=== PATIENT | male | born 1990 | race Caucasian/White ===

== ENCOUNTER 2021-01-18 08:48 | Emergency (ER) | payer OTHER, SELFPAY ==
--- NOTE | ~2021-01-18 | XR_ITS ---
EXAMINATION: XR CHEST CLINICAL INFORMATION: Cough. COMPARISON: None TECHNIQUE: Frontal view of the chest was obtained. FINDINGS: The lungs are clear. The cardiomediastinal silhouette is normal in size. There is no pleural effusion or pneumothorax. No acute osseous abnormality. XR/XR chest 1V IMPRESSION: No acute cardiopulmonary findings.
[2021-01-18 09:03] VITALS: BP 125/68; PULSE 80; RESP 18; TEMP 36.8; O2SAT 98; BMI 41.3
[2021-01-18 09:38] LABS: COVID-19 Test Negative (Negative); IDNOW Serial# 9DD0AD1C
[2021-01-18 09:41] LABS: Strep A Nucleic Acid Negative (Negative)
--- NOTE | 2021-01-18 10:19 | ED.URI ---
HPI - URI/Sore Throat General Chief Complaint: Upper Respiratory Symptoms Stated Complaint: headaches body aches Time Seen by Provider: 01/18/21 09:09 History of Present Illness HPI Narrative: Patient complains of cough runny nose and sore throat and body aches for 2 days, no shortness of breath no nausea or vomiting no chest pain Related Data Allergies Allergy/AdvReac Type Severity Reaction Status Date / Time No Known Allergies Allergy Verified 01/18/21 09:07 Review of Systems Review of Systems: Positive for cough body aches runny nose sore throat fatigue Negatives are no fever no chills no dizziness no weakness no fainting no feeling faint no neck pain no stiff neck no chest pain no shortness of breath no palpitations no abdominal pain no nausea vomiting or diarrhea no dysuria no rash Yes all other systems are reviewed and are negative [facility] Past Medical History Source: nursing notes reviewed Social History Social History Advance Directives: No Advance Directives Information Provided: No Physical Exam Vital Signs: Vital Signs: Last Vital Signs Temp 98.2 F 01/18/21 09:03 Pulse 80 01/18/21 09:03 Resp 18 01/18/21 09:03 BP 125/68 01/18/21 09:03 Pulse Ox 98 01/18/21 09:03 Body Mass Index 41.3 General appearance is no acute distress The ears are clear with no redness of tympanic membrane The eyes no redness or discharge The pharynx no redness swelling or exudate, mucous membranes are moist, voice is normal Neck is supple The chest is clear to auscultation bilateral Heart no murmur Abdomen soft nontender Extremities no edema no calf tenderness no swelling Skin no rash Course Course Course Narrative: COVID testing was negative, strep throat test was negative, chest x-ray was negative Symptoms were concerning for COVID so patient was advised as long as he is symptomatic he should be aware that 1-rapid test does not rule out COVID and he is given a note for several days off work and recommended to get a repeat test before returning He is otherwise well-appearing with normal vital signs and is discharged home MDM - URI/Sore Throat Lab Data Labs: Lab Results 01/18/21 01/18/21 Range/Units 09:15 09:22 COVID-19 (ISAMAR) Negative (Negative) COVID-19 Clin Com See Note S. pyogenes GrpA MCKINLEY Negative (Negative) Discharge Plan Discharge Clinical Impression: Acute viral syndrome Patient Disposition: Home, Self-Care Additional Instructions: Your COVID test, strep test and chest x-ray were normal But because you have symptoms that could be COVID we recommend no work for 5 days and get a repeat test before going back to confirm it is negative The COVID test is often negative initially and 1 one test does not rule it out if a person is coughing a lot and symptomatic Return to the ER any time for difficulty breathing, any worse condition or any concerns Stand Alone Forms: Work/School Release
== END 2021-01-18 10:41 | disposition home or self-care (01) ==
PROVIDERS: Physician Assistant Medical; Emergency Provider Internal Medicine
DX: B34.9 Viral infection, unspecified (principal); Z20.822 Contact with and (suspected) exposure to COVID-19; J02.9 Acute pharyngitis, unspecified
CPT/HCPCS: 36415; 71045; 87635; 87651; 99283

== ENCOUNTER 2021-01-22 19:57 | Emergency (ER) | payer OTHER, SELFPAY | END 2021-01-22 21:44 | disposition left against medical advice (07) | PROVIDERS: Emergency Provider Emergency Medicine | DX: R53.1 Weakness (principal) ==

== ENCOUNTER 2021-01-24 19:57 | Emergency (ER) | payer OTHER, SELFPAY ==
[2021-01-24 20:00] VITALS: BP 180/120; PULSE 110; RESP 18; TEMP 36.8; O2SAT 97; BMI 40.1
[2021-01-24 20:22] LABS: COVID-19 Test Negative (Negative)
== END 2021-01-24 22:16 | disposition left against medical advice (07) ==
PROVIDERS: Emergency Provider Emergency Medicine
DX: R50.9 Fever, unspecified (principal); M79.10 Myalgia, unspecified site; Z20.822 Contact with and (suspected) exposure to COVID-19
CPT/HCPCS: 36415; 87635; 99282

== ENCOUNTER 2021-06-28 16:22 | Emergency (ER) | payer SELFPAY ==
--- NOTE | 2021-06-28 | ECG_ITS ---
Test Reason : CHEST PAIN Blood Pressure : / mmHG Vent. Rate : 104 BPM Atrial Rate : 104 BPM P-R Int : 152 ms QRS Dur : 086 ms QT Int : 298 ms P-R-T Axes : 053 050 -10 degrees QTc Int : 391 ms Sinus tachycardia Abnormal QRS-T angle, consider primary T wave abnormality Abnormal ECG No previous ECGs available Referred By: Generic ED Physician Electronically Signed By:AIDEE VILLASEÑOR MD
--- NOTE | ~2021-06-28 | XR_ITS ---
EXAMINATION: XR CHEST CLINICAL INFORMATION: Cough COMPARISON: 01/18/2021 TECHNIQUE: Frontal view of the chest was obtained. FINDINGS: No significant abnormality is noted involving the heart, lungs, mediastinum, bony thorax or soft tissues. XR/XR chest 1V IMPRESSION: Unremarkable examination.
[2021-06-28 16:37] VITALS: BP 171/93; PULSE 103; RESP 18; TEMP 37; O2SAT 97; BMI 44.6
[2021-06-28 17:06] LABS: MANUAL DIFF FLAG NO
[2021-06-28 17:21] LABS: Basophils Absolute Auto 0.1 X10*3/uL (0.0-0.2); Basophils Percent Auto 0.7 % (0-2); Eosinophils Absolute Auto 0.2 X10*3/uL (0.0-0.4); Eosinophils Percent Auto 1.5 % (0-4); Hemoglobin 15.1 g/dl (14.0-18.0); Imm Gran Abs Auto 0.06 X10*3/uL (0.00-0.03); Imm Gran Pct Auto 0.6 % (0.0-0.4); Lymphocytes Absolute Auto 2.5 X10*3/uL (1.2-4.9); Lymphocytes Percent Auto 23.6 % (20-40); Mean Corpuscular HGB Conc 33.6 g/dl (31.0-36.0); Mean Corpuscular Volume 86.5 fL (80.0-98.0); Mean Platelet Volume 10.6 fL (9.4-12.4); Monocytes Absolute Auto 0.7 X10*3/uL (0.1-1.2); Monocytes Percent Auto 6.9 % (2-11); Neutrophils Absolute Auto 7.1 x10*3/uL (2.0-8.3); Neutrophils Percent Auto 66.7 % (45-73); Platelet Count 285 X10*3/uL (160-400); Red Cell Distribution Width 11.9 % (11.0-16.0); White Blood Count 10.7 X10*3/uL (4.8-10.8)
[2021-06-28 17:22] LABS: Anion Gap 11 (12-20); Blood Urea Nitrogen 13 mg/dL (9-16); Calcium 10.4 mg/dL (8.4-10.2); Carbon Dioxide 30 mmol/L (22-29); Chloride 103 mmol/L (96-108); Creatinine Clr Calc Pharmacy 158.1; Estimated Glomerular Filt Rate > 60; Glucose Random 103 mg/dL (60-115); Sodium 140 mmol/L (135-145)
[2021-06-28 17:30] LABS: Troponin-I High Sensitivity < 3.5 ng/L (<3.5-35.0)
--- NOTE | 2021-06-28 17:49 | ED.GENADULT ---
HPI - General Adult General Chief complaint: General Medical Stated complaint: COVID+ trouble breathing, chest pain 14+ days Time Seen by Provider: 06/28/21 17:25 Source: patient Mode of arrival: ambulatory Limitations: no limitations History of Present Illness HPI narrative: 31-year-old male with pmh of anxiety not vaccinated for COVID presents to ED for COVID. Patient states he has been positive for COVID since June 14 but had symptoms days prior to diagnosis. Patient states having total of 17 days of COVID symptoms. Patient states for the past 14 days has had continuous cough, chest congestion, coughing up phleghm, body aches, fatigue, and chest pain only when he coughs. Patient states he has monitor his O2 saturation at home has been above 97%. Patient denies coughing up blood, leg swelling, calf pain,or shortness of breath on extertion. Related Data Allergies Allergy/AdvReac Type Severity Reaction Status Date / Time No Known Allergies Allergy Verified 06/28/21 16:37 Review of Systems Review of Systems: Coughing, chest pain when he coughs only, chest congestion, body aches, fatigue Yes all other systems are reviewed and are negative [facility] Past Medical History Medical History (Updated 06/28/21 @ 18:58 by MICHAEL Inman) No known health problems Social History Social History Advance Directives: No Advance Directives Information Provided: Yes Physical Exam Vital Signs: Vital Signs: Last Vital Signs Temp 98.6 F 06/28/21 16:37 Pulse 103 H 06/28/21 16:37 Resp 18 06/28/21 16:37 BP 171/93 H 06/28/21 16:37 Pulse Ox 97 06/28/21 16:37 BMI result Body Mass Index 44.6 Const: General: cooperative, healthy appearing, comfortable, no acute distress, well developed, alert, awake and Physically active Orientation/consciousness: patient oriented x3 HENMT: Head: Yes normal to inspection, Yes No palpable skull fracture present, Yes normocephalic, Yes atraumatic and No abrasion Eyes: General: appearance normal, both eyes and all related structures Neck: Neck: Yes normal visual inspection, Yes full ROM, Yes no lymphadenopathy, Yes no meningeal signs, Yes trachea midline, Yes supple, No anterior neck swelling and No tender Chest: Chest palpation & inspection: normal inspection of the chest and normal palpation of entire chest wall Resp: Effort & Inspection: normal respiratory effort and able to speak in complete sentences Auscultation: clear to auscultation bilaterally Cardio: Jugular venous distension: no JVD Heart sounds: S1 normal heart sound present and S2 normal heart sound present GI: Inspection: Yes normal to inspection and No abdominal wall ecchymosis Palpation (GI): Soft to palpation, not firm, nontender, no guarding and not rigid : General: No CVA tenderness and Yes no CVA tenderness Back/Spine/Pelvis: Back: no CVA tenderness, No CVA tenderness and No back tenderness Skin: General skin exam: no rashes or lesions noted and elasticity normal Neuro: General: patient oriented x3, gait normal, no meningeal signs and CN's II-XI intact bilaterally Cranial nerves: Yes CN's II-XII intact bilaterally Extrem: General: Yes normal to inspection and Yes full ROM Psych: Appearance: grossly normal, well kempt and not disheveled Course Course Course Narrative: Rapid medical screening done by nurse. Labs, EKG, and troponin ordered. Chest x-ray ordered. Vital signs stable. Reevaluation(s) Reevaluation #1: Chest x-ray normal. EKG shows sinus tach. Troponin negative. O2 saturation on room air at rest 97%. On ambulation O2 saturation 96-97%. Patient denies any chest pain or shortness of breath on exertion. Patient will be discharged. Patient presently safe for discharge. patient having symptoms for 17days due to covid. patient educated on posiblity of devoloping long haul chronic covid symptoms. patient is not vaccinated. Not suspecting PE. Patient is not hypoxic and denies pleuritic chest pain. Patient educated on symptoms of PE and respiratory distress and informed to return to the ED if he has them. Patient informed of his elevated blood pressure and is aware that its elevated and admits to 100 pounds weight gain. patient states he will follow up with his PCP in regards to his Blood pressure Time: 18:55 Medical Decision Making MDM Narrative Medical decision making narrative: Covid Lab Data Result diagrams: 06/28/21 17:01 06/28/21 17:01 Labs: Lab Results 06/28/21 06/28/21 06/28/21 Range/Units 17:01 17:01 17:01 WBC 10.7 (4.8-10.8) X10*3/uL RBC 5.20 (4.60-5.80) X10*6/uL Hgb 15.1 (14.0-18.0) g/dl Hct 45.0 (42.0-52.0) % MCV 86.5 (80.0-98.0) fL MCH 29.0 (27.0-33.0) pg MCHC 33.6 (31.0-36.0) g/dl RDW 11.9 (11.0-16.0) % Plt Count 285 (160-400) X10*3/uL MPV 10.6 (9.4-12.4) fL Immature Gran % (Auto) 0.6 H (0.0-0.4) % Neut % (Auto) 66.7 (45-73) % Lymph % (Auto) 23.6 (20-40) % [place] % (Auto) 6.9 (2-11) % Eos % (Auto) 1.5 (0-4) % Baso % (Auto) 0.7 (0-2) % Lymph # (Auto) 2.5 (1.2-4.9) X10*3/uL [place] # (Auto) 0.7 (0.1-1.2) X10*3/uL Eos # (Auto) 0.2 (0.0-0.4) X10*3/uL Baso # (Auto) 0.1 (0.0-0.2) X10*3/uL Abs Immat Gran (auto) 0.06 H (0.00-0.03) X10*3/uL Absolute Neuts (auto) 7.1 (2.0-8.3) x10*3/uL Absolute Nucleated RBC 0.000 (0.0-0.012) X10*3/uL Nucleated RBC % (auto) 0.0 (0.0-0.2) /100WBC Sodium 140 (135-145) mmol/L Potassium 4.0 (3.3-5.1) mmol/L Chloride 103 (96-108) mmol/L Carbon Dioxide 30 H (22-29) mmol/L Anion Gap 11 L (12-20) BUN 13 (9-16) mg/dL Creatinine 0.96 (0.5-1.4) mg/dL Estim Creat Clear Calc 158.1 Estimated GFR > 60 Random Glucose 103 (60-115) mg/dL Calcium 10.4 H (8.4-10.2) mg/dL Troponin I High Sens < 3.5 (<3.5-35.0) ng/L ECG Data Interpretation: EKG sinus tach Ventricular rate of 104, KS interval 152, QRS 86, and QTC 391. NEgative Stemi Discharge Plan Discharge Clinical Impression: COVID-19, COVID-19 anamaria butler manifesting chronic cough Patient Disposition: Home, Self-Care Instructions: Chronic Cough (ED), COVID-19 (Coronavirus Disease 2019) (ED) Additional Instructions: Her symptoms are due to COVID-19. Her chest x-ray, the test for heart, EKG, and rest of labs came back normal. Please follow-up with your primary care provider. Return to the ED for any coughing up blood, worsening chest pain, shortness of breath, leg swelling, calf pain, weakness, dizziness, intractable fever, or any other concerning symptoms. Stand Alone Forms: Work/School Release Interventions: ED Discharge Assessment Last Done: 06/28/21 19:02 Discharge Date/Time: 06/28/21 19:04 Print Language: Andorran
--- NOTE | 2021-06-28 18:44 | PC.NURSE ---
Patient did a walking oxygen level trial . . He walked around room and maintained oxygen levels of 96% -97% at room air . Patient reports zero difficulty breathing while walking , tolerated well .
== END 2021-06-28 19:04 | disposition home or self-care (01) ==
PROVIDERS: Emergency Provider Emergency Medicine
DX: R05.3 Chronic cough (principal); U09.9 Post COVID-19 condition, unspecified; U07.1 COVID-19
CPT/HCPCS: 36415; 71045; 80048; 84484; 85025; 93005; 99283; 99284

== ENCOUNTER 2021-09-22 15:54 | Emergency (ER) | payer SELFPAY ==
--- NOTE | ~2021-09-22 | XR_ITS ---
EXAMINATION: XR LUMBOSACRAL SPINE CLINICAL INFORMATION: Atraumatic lower back pain COMPARISON: None TECHNIQUE: Three views of the lumbosacral spine. FINDINGS: Mild lumbar disc height narrowing L4-L5. Vertebrae have normal height and alignment. No fracture or bone destruction. Facet joints are normal. No spondylolysis or spondylolisthesis. Sacroiliac joints are normal. XR/XR lumbar spine 2-3V IMPRESSION: Mild lumbar disc height narrowing L4-L5.
[2021-09-22 16:54] VITALS: BP 172/112; PULSE 112; RESP 20; TEMP 36.8; O2SAT 95; BMI 44.9
--- NOTE | 2021-09-22 17:35 | ED_ITS ---
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 He reports that it is worse when he is trying to walk or bend over forward to even put his shoes or socks on. He reports that he knows he has gained loss of weight since he started kymberly and since COVID happen. He denies any fevers, chills, dizziness, headaches, neck pain/stiffness, trouble swallowing or breathing, chest pain or shortness of breath, dyspnea on exertion, orthopnea, palpitations, jaw pain, nausea/vomiting/diarrhea constipation, black or bloody stools, dysuria, hematuria, abnormal penile discharge, rashes, history of IV drug use, urinary or bowel incontinence or retention or any other symptoms complaints or concerns at this time. MD elicited complaint: back pain Onset (ago): day(s) (3) Timing: constant and progressively worsening Severity: moderate Similar Symptoms Previously: No Quality: aching Location: lumbar spine Radiation: left leg below the knee Exacerbating factors: movement, walking, lifting and other (And bending over) Relieving factors: none Context: unknown Associated symptoms: denies other symptoms Treatments prior to arrival: NSAIDS Work related injury: No Related Data Previous Rx's Medication Instructions Recorded cyclobenzaprine 10 mg tablet 10 mg PO Q8H PRN #14 tab 09/22/21 lidocaine 5 % topical patch 1 patch TOPICAL DAILY #15 ea 09/22/21 (Lidoderm) naproxen 500 mg tablet 500 mg PO BID PRN #14 tab 09/22/21 Allergies Allergy/AdvReac Type Severity Reaction Status Date / Time No Known Allergies Allergy Verified 09/22/21 17:02 Review of Systems Review of Systems: Constitutional : No trauma, No Weight loss, No Fever, No Chills, ENT/Mouth : No Hearing loss, No Ear Pain, No Nasal Congestion, No Sinus Pain, No Hoarseness, No sore throat, No Rhinorrhea, No Swallowing Difficulty Cardiovascular : No Chest Pain, No SOB Respiratory : No Cough, No Dyspnea Gastrointestinal : No Nausea, No Vomiting, No Diarrhea, No abdominal Pain, No Hematochezia, No Melena Genitourinary : No Dysuria, No Urinary Frequency, No Hematuria, No Urinary or Bowel Incontinence/retention Musculoskeletal : + Back pain, No neck pain, No joint stiffness, No joint swelling Skin : No Skin Lesions, No rash or signs of infection Neuro : No Weakness, No radiation, No Numbness, No Paresthesias, No headache, no loss of bowel or bladder incontinence, no saddle anesthesia, Focal weakness, + radiation to left lower leg Denies history of IV drug usage. Yes all other systems are reviewed and are negative [facility] Past Medical History Attestation statement: The following information was validated with the patient. Medical History No known health problems Social History Social History Advance Directives: No Advance Directives Information Provided: No Physical Exam Vital Signs: Vital Signs: Last Vital Signs Temp 98.2 F 09/22/21 16:54 Pulse 112 H 09/22/21 16:54 Resp 20 09/22/21 16:54 BP 172/112 H 09/22/21 16:54 Pulse Ox 95 09/22/21 16:54 BMI result Body Mass Index 44.9 vital signs have been reviewed as normal and appeared to be correct. Blood pressure normal. Heart rate normal. Respiration rate normal. Temperature normal. Oxygen saturation normal. Appearance: Alert. Oriented X3. No acute distress. Head: Normal external exam. Normocephalic. Atraumatic. No [place] signs noted. No raccoon eyes noted Eyes: PERRLA. EOMI. Conjunctiva and sclera normal. Eyelids normal. ENT: EAC normal. TM's Normal. Pharynx normal. Uvula midline. Moist mucous membranes. No trismus noted. No drooling noted. No muffled voice noted. Neck: Normal inspection. Neck supple. FROM. No adenopathy. Thyroid Normal. No meningeal signs. No neck mass noted. CVS: Normal heart rate and rhythm. Heart sound normal. No murmurs noted. Pulses normal throughout. Respiratory: No respiratory distress. Painless inspiration. Breath sounds normal. No wheezes/rales/rhonchi noted. Chest nontender. No accessory muscle usage noted or decreased air movement noted. Abdomen: Soft and nontender. Bowel sounds normal in all 4 quadrants. No distention noted. No organomegaly noted. No visible injury noted. Back: No CVA tenderness. Full range of motion noted. No obvious deformities, or edema. Mild para-spinal muscular tenderness from lumbar region to coccyx. Full ROM in back and lower extremities. 5/5 strength hip extension/flexion, abduction, adduction. Mild Lumbar pain with hip flexion against resistance. Straight leg raise test negative on right; Straight leg raise test negative on left; Reflexes normal ankle and knee bilaterally; EHL motor strength normal bilaterally. No rashes/lesion/induration/fluctuance or signs infection noted. Skin: Skin warm and dry. Normal skin color. Normal skin turgor. No rashes/lesions/lacerations noted. Extremities: No lower extremity edema. Extremities exhibit normal range of motion. Extremities nontender. Neuro: Oriented X 3. No motor deficit. No sensory deficit. Reflexes normal. Patient has a normal steady gait. Course Course Course Narrative: Pt c likely muscular pain, but could be herniated disc. Neuro exam shows no deficits. Not c/w AAA/epidural abscess/dissection.No high risk Hx (Incont, fever, immunosupp, recent surgery/LP, coag, signif trauma, wt loss, puls mass, hx/o Ca, TB, or IVDU) to warrant MRI/CT today. Not c/w Pyelo/UTI/kidney stone/spinal fx. Not cauda equina syndrome. Will obtain Xray and Ua. 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 He reports that he knows that his blood pressure may be related to his weight and him being in pain at this time and he knows that he needs to lose some weight and take care of himself therefore will give him a few numbers so he can contact for PCP. Reevaluation(s) Reevaluation #1: - lumbar x-ray revealed mild lumbar disc height narrowing at L4/L5 otherwise no other acute processes noted. UA within normal limits no evidence of UTI no hematuria. Therefore at this time will DC home with symptomatic treatment in structions to follow-up with PCP for possible high blood pressure diagnosis. Patient understands agrees with this plan. Time: 18:15 Reevaluation #2: I repeated the patient's blood pressure and he is now 153 over 105 and I offered blood work and to start the patient on a small dose of blood pressure medication till he is able to see a primary care although patient is refusing at this time reports that most likely his blood pressures related to his pain and he would rather try to control his pain and then see a PCP as an outpatient basis. I explained him that this is very important as elevated blood pressure can cause strokes or heart attacks or kidney failure any other problem he understands this and agrees with the plan to follow-up with PCP he is refusing any additional labs at this time. Time: 18:24 MDM - Back Pain/Injury Medical Records Attestation: I reviewed the patient's medical records. Lab Data Labs: Lab Results 09/22/21 Range/Units 17:33 Urine Color YELLOW Urine Appearance CLEAR Urine pH 6.0 (5.0-8.0) Ur Specific [place] <= 1.005 (1.005-1.025) Urine Protein NEG (NEG-TRACE) MG/DL Urine Glucose (UA) NEG (NEG) MG/DL Urine Ketones NEG (NEG) MG/DL Urine Blood NEG (NEG) Urine Nitrite NEG (NEG) Ur Leukocyte Esterase NEG (NEG) Imaging Data Lumbar spine x-ray: Attestation: I personally reviewed and interpreted this imaging study as follows: Radiologist's impression: FINDINGS: Mild lumbar disc height narrowing L4-L5. Vertebrae have normal height and alignment. No fracture or bone destruction. Facet joints are normal. No spondylolysis or spondylolisthesis. Sacroiliac joints are normal. XR/XR lumbar spine 2-3V IMPRESSION: Mild lumbar disc height narrowing L4-L5. Discharge Plan Discharge Clinical Impression: Strain of lumbar region, High blood pressure Patient Disposition: Home, Self-Care Instructions: Heart Healthy Diet (ED), Low Back Strain (ED), Hypertension (ED) Prescriptions: New naproxen 500 mg tablet 500 mg PO BID PRN (Reason: pain) Qty: 14 0RF cyclobenzaprine 10 mg tablet 10 mg PO Q8H PRN (Reason: Muscle spasm) Qty: 14 0RF lidocaine [Lidoderm] 5 % adhesive patch,medicated 1 patch topical DAILY Qty: 15 0RF Rx Instructions: leave on most painful area for up to 12 hrs. May be substituted Referrals: [facility] [Provider Group] [facility] [Provider Group] [facility] [place] [facility]] [facility] [place] [facility] [[facility]] Stand Alone Forms: Work/School Release Print Language: Lithuanian
[2021-09-22 18:04] LABS: Appearance Urine CLEAR; Color Urine YELLOW; Glucose Urine UA NEG (NEG); Leukocyte Esterase Urine NEG (NEG); Nitrite Urine NEG (NEG); Specific Gravity - Urine <= 1.005 (1.005-1.025); Urine Blood NEG (NEG); Urine Ketones NEG (NEG); Urine Protein NEG (NEG-TRACE)
== END 2021-09-22 18:34 | disposition home or self-care (01) ==
PROVIDERS: Physician Assistant Medical; Emergency Provider Emergency Medicine
DX: S39.012A Strain of muscle, fascia and tendon of lower back, initial encounter (principal); R03.0 Elevated blood-pressure reading, without diagnosis of hypertension; X58.XXXA Exposure to other specified factors, initial encounter; Y93.9 Activity, unspecified; Y92.9 Unspecified place or not applicable; Y99.9 Unspecified external cause status
CPT/HCPCS: 72100; 81003; 99283

== ENCOUNTER 2021-11-22 18:47 | Emergency (ER) | payer SELFPAY | END 2021-11-22 19:26 | disposition left against medical advice (07) | PROVIDERS: Emergency Provider Emergency Medicine | DX: H92.03 Otalgia, bilateral (principal) ==

== ENCOUNTER 2021-11-26 01:20 | Emergency (ER) | payer SELFPAY ==
[2021-11-26 01:23] VITALS: PULSE 82; RESP 18; TEMP 36.7; O2SAT 98; BMI 43.0
[2021-11-26 01:35] VITALS: BP 165/108; PULSE 90; RESP 15; O2SAT 97
--- NOTE | 2021-11-26 02:06 | ED.EAR ---
HPI - Ear Problem General Chief complaint: Ear Problems Stated complaint: loss hearing in L ear (as of 11/21) Time Seen by Provider: 11/26/21 01:29 Source: patient Mode of arrival: ambulatory Limitations: no limitations History of Present Illness HPI Narrative: patient comes in the emergency room complaining of unable to hear out of his left ear. Patient has been using Debrox and has been using Q-tips to clean both of his ears. Patient complaining of tinnitus as well. Related Data Previous Rx's Medication Instructions Recorded cyclobenzaprine 10 mg tablet 10 mg PO Q8H PRN Muscle spasm #14 09/22/21 tabs lidocaine 5 % topical patch 1 patch topical DAILY pain #15 ea 09/22/21 (Lidoderm) naproxen 500 mg tablet 500 mg PO BID PRN pain #14 tabs 09/22/21 amoxicillin 500 mg-potassium 1 tab PO BID #14 tabs 11/26/21 clavulanate 125 mg tablet (Augmentin) ibuprofen 600 mg tablet 600 mg PO TID PRN fever or pain 11/26/21 #14 tabs Allergies Allergy/AdvReac Type Severity Reaction Status Date / Time No Known Allergies Allergy Verified 09/22/21 17:02 Review of Systems Review of Systems: Constitutional : No Weight loss, No Fever, No Chills, No Night Sweats, No Fatigue, No Malaise ENT/Mouth : complaining of left-sided hearing loss or 4 days, No Nasal Congestion, No Sinus Pain, No Hoarseness, No sore throat, No Rhinorrhea, No Swallowing Difficulty Eyes: No Eye Pain, No Swelling, No Redness, No Foreign Body, No Discharge, No Vision Changes Cardiovascular : No Chest Pain, No SOB, No Dyspnea on Exertion, No Orthopnea, No Edema, No Palpitations Respiratory : No Cough, No Sputum, No Wheezing, No Smoke Exposure, No Dyspnea Gastrointestinal : No Nausea, No Vomiting, No Diarrhea, No Constipation, No abdominal Pain, No Hematochezia, No Melena Genitourinary : no irregular bleeding, No Dysuria, No Urinary Frequency, No Hematuria, No Urinary Incontinence, No Urgency, No Flank Pain, No Urinary Flow Changes, No Hesitancy Musculoskeletal : No joint pain, No Myalgias, No Joint Swelling Skin : No Skin Lesions, No rash Neuro : No Weakness, No Numbness, No Paresthesias, No Loss of Consciousness, No Dizziness, No Headache Psych : No Anxiety/Panic, No Depression, No SI/HI/AH/VH, No Social Issues, Heme/Lymph: No Bruising, No Bleeding,No Lymphadenopathy Endocrine : No Polyuria, No Polydipsia, No Temperature Intolerance PMFSH Past Medical History Medical History No known health problems Social History Social History Advance Directives: No Advance Directives Information Provided: Yes Physical Exam Vital Signs: Vital Signs: Last Vital Signs Temp 98.1 F 11/26/21 01:23 Pulse 90 11/26/21 01:35 Resp 15 11/26/21 01:35 BP 165/108 H 11/26/21 01:35 Pulse Ox 97 11/26/21 01:35 O2 Del Method 11/26/21 01:35 BMI result Body Mass Index 43.0 Const: Other: Appearance: Alert. Oriented X3. No acute distress. Eyes: Pupils equal, round and reactive to light. ENT: Pharynx normal. right ear is completely blocked by dry cerumen. The left ear is blocked with with cerumen. Patient has been using Debrox. Left ear looks erythematous anterior to the cerumen Neck: Normal inspection. Neck supple. No lymph nodes noted. No crepitus CVS: Normal heart rate and rhythm. Pulses normal. Normal S1 and S2 Respiratory: No respiratory distress. Breath sounds normal. No Wheezing. No rales Abdomen: Soft and nontender. No rigidity. No distention. Skin: Skin warm and dry. Normal skin color. Normal skin turgor. Extremities: No lower extremity edema. No Lacerations. No Rash Neuro: Oriented X 3. No motor deficit. No sensory deficit. Moving all extremities. No slurred speech. CN 2 through 12 grossly intact Psych: calm, cooperative, normal affect Course Course Course Narrative: the cerumen on the left ear is very soft, a large amount of cerumen was extracted. However, there is still a large amount of impacted cerumen close to the tympanic membrane. The ear canal is erythematous. patient has been using Q-tips to clean his ear, possibly caused ear perforaton? It is difficult to visualize the tympanic membrane due to the amount of cerumen, the TM is partially visualized, it seems to be perforated, but once again,it is very difficult to see the tympanic membrane. I discussed with the patient that he needs to see an ENT. we will start him on antibiotics. Patient was given 1 dose of IM Toradol and augmentin Discharge Plan Discharge Clinical Impression: Cerumen impaction, Otitis Patient Disposition: Home, Self-Care Instructions: Ruptured Eardrum (ED), Ear Infection (ED) Additional Instructions: do not put any medication or Q-tips in your left ear. You may continue using Debrox on the right ear. Please follow-up with ENT and your primary care physician tomorrow. If you have any worsening or new symptoms, please return to the emergency room or call 911 Prescriptions: New ibuprofen 600 mg tablet 600 mg PO TID PRN (Reason: fever or pain) Qty: 14 0RF amoxicillin-pot clavulanate [Augmentin] 500-125 mg tablet 1 tab PO BID Qty: 14 0RF No Action naproxen 500 mg tablet 500 mg PO BID PRN (Reason: pain) Qty: 14 0RF cyclobenzaprine 10 mg tablet 10 mg PO Q8H PRN (Reason: Muscle spasm) Qty: 14 0RF lidocaine [Lidoderm] 5 % adhesive patch,medicated 1 patch topical DAILY Qty: 15 0RF Rx Instructions: leave on most painful area for up to 12 hrs. May be substituted Referrals: Uriah Gill [Physician] - 1 day
[2021-11-26] MEDS: Amoxicillin/Potassium Clav 875 MG TABLET PO (02:38)
== END 2021-11-26 03:00 | disposition home or self-care (01) ==
PROVIDERS: Emergency Provider Emergency Medicine
DX: H61.22 Impacted cerumen, left ear (principal); H66.92 Otitis media, unspecified, left ear; Z79.899 Other long term (current) drug therapy
CPT/HCPCS: 69209; 96372; 99284

== ENCOUNTER 2021-11-29 04:01 | Emergency (ER) | payer SELFPAY ==
[2021-11-29 04:22] VITALS: BP 177/109; PULSE 107; RESP 16; TEMP 36.8; O2SAT 97; BMI 43.0
--- NOTE | 2021-11-29 04:34 | ED_ITS ---
HPI - Ear Problem General Chief complaint: Ear Problems Stated complaint: unable to hear L ear, dizzy, bleeding Time Seen by Provider: 11/29/21 04:33 Source: patient Mode of arrival: ambulatory Limitations: no limitations History of Present Illness HPI Narrative: Complaining of pain in the left ear unable to hear anything. Patient was seen here on 11/26 for impacted cerumen was told at possible he has a ruptured tympanic membrane. And wax was removed complaining of blood coming from the left ear no distant injury Related Data Previous Rx's Medication Instructions Recorded cyclobenzaprine 10 mg tablet 10 mg PO Q8H PRN Muscle spasm #14 09/22/21 tabs lidocaine 5 % topical patch 1 patch topical DAILY pain #15 ea 09/22/21 (Lidoderm) naproxen 500 mg tablet 500 mg PO BID PRN pain #14 tabs 09/22/21 amoxicillin 500 mg-potassium 1 tab PO BID #14 tabs 11/26/21 clavulanate 125 mg tablet (Augmentin) ibuprofen 600 mg tablet 600 mg PO TID PRN fever or pain 11/26/21 #14 tabs Allergies Allergy/AdvReac Type Severity Reaction Status Date / Time No Known Allergies Allergy Verified 11/29/21 04:24 Review of Systems Review of Systems: Yes all other systems are reviewed and are negative [facility] Past Medical History Medical History No known health problems Social History Social History Advance Directives: No Physical Exam Vital Signs: Vital Signs: Last Vital Signs Temp 98.7 F 11/29/21 05:00 Pulse 98 11/29/21 05:00 Resp 16 11/29/21 05:00 BP 146/82 H 11/29/21 05:00 Pulse Ox 96 11/29/21 05:00 O2 Del Method 11/29/21 05:00 BMI result Body Mass Index 43.0 Const: General: healthy appearing and comfortable HEENT: Head: Yes normal to inspection Ears: external ears normal and Abnormal EAC present (Superficial abrasion in the EAC of left side with minor bleeding) cerumen impaction on the right and on the left Face and sinus: Yes normal facial exam Resp: Effort & Inspection: normal respiratory effort Auscultation: clear to auscultation bilaterally Cardio: Rate: regular rate Rhythm: regular rhythm Heart sounds: S1 normal heart sound present and S2 normal heart sound present Procedures Ear Wax Removal Both Ears: Results: Re-examined: cerumen removed completely TM Examination: TM(s) intact, normal appearance Ear Canal Exam: bleeding Noted Patient Tolerated Procedure: well (Left EAC small amount of blood was seen prior to the procedure) Technique: ear canal irrigated Additional Comments: Post wax removal temp and normal was intact small amount of blood seen in EAC of the left side patient was able to hear normally Discharge Plan Discharge Clinical Impression: Bilateral impacted cerumen Patient Disposition: Home, Self-Care Additional Instructions: Bilateral cerumen impaction Local care as advised No ruptured tympanic membrane seen Prescriptions: No Action naproxen 500 mg tablet 500 mg PO BID PRN (Reason: pain) Qty: 14 0RF cyclobenzaprine 10 mg tablet 10 mg PO Q8H PRN (Reason: Muscle spasm) Qty: 14 0RF lidocaine [Lidoderm] 5 % adhesive patch,medicated 1 patch topical DAILY Qty: 15 0RF Rx Instructions: leave on most painful area for up to 12 hrs. May be substituted ibuprofen 600 mg tablet 600 mg PO TID PRN (Reason: fever or pain) Qty: 14 0RF amoxicillin-pot clavulanate [Augmentin] 500-125 mg tablet 1 tab PO BID Qty: 14 0RF
[2021-11-29 05:00] VITALS: BP 146/82; PULSE 98; RESP 16; TEMP 37.1; O2SAT 96
== END 2021-11-29 05:19 | disposition home or self-care (01) ==
PROVIDERS: Emergency Provider Internal Medicine
DX: R42 Dizziness and giddiness (principal); H61.23 Impacted cerumen, bilateral; Z79.899 Other long term (current) drug therapy
CPT/HCPCS: 69209; 99284

== ENCOUNTER 2022-02-08 23:02 | Emergency (ER) | payer OTHER, SELFPAY ==
--- NOTE | ~2022-02-08 | XR_ITS ---
EXAMINATION: XR RIBS, LEFT CLINICAL INFORMATION: Pain after fall COMPARISON: None TECHNIQUE: 3 views of the left ribs were obtained. FINDINGS: Lung volumes are symmetric. No focal consolidation is seen. No evidence of pneumothorax, pleural effusion, or pulmonary edema. The cardiomediastinal contour is unremarkable. No displaced rib fracture is seen. XR/XR ribs LT min 3V w CXR1V IMPRESSION: No rib fracture identified.
--- NOTE | ~2022-02-08 | CT_ITS ---
EXAMINATION: CT CHEST WITHOUT CONTRAST CLINICAL INFORMATION: Left rib pain after fall COMPARISON: Radiographs from earlier today TECHNIQUE: Multidetector volumetric CT imaging of the chest was done. Axial MIP volume rendering provided. Sagittal and coronal reformatted images were obtained. This CT examination was performed using dose optimization techniques as appropriate, variously including the following: *Automated exposure control *Adjustment of mA and/or kV according to patient size (this includes techniques or standardized protocols for targeted exams where dose is matched to indication/reason for exam; i.e. extremities or head) *Use of iterative reconstruction technique DLP: 597 mGy-cm FINDINGS: LUNGS: No regions of consolidation. Trace subsegmental atelectasis noted bilaterally. MEDIASTINUM: The visualized thyroid gland is unremarkable. There are subcentimeter mediastinal lymph nodes within the range of normal variation. Cardiac size is within normal limits; no pericardial effusion. PLEURA: There is no pleural effusion. No pleural mass or thickening. AXILLA: No lymphadenopathy. UPPER ABDOMEN: Unremarkable. OSSEOUS STRUCTURES: No fracture identified. CT/CT chest wo IV con IMPRESSION: No acute intrathoracic findings. No fracture identified.
[2022-02-08 23:30] VITALS: BP 149/98; PULSE 79; RESP 16; TEMP 36.5; O2SAT 98; BMI 38.7
--- NOTE | 2022-02-09 04:58 | ED_ITS ---
HPI - Fall General Chief Complaint: Fall Stated Complaint: left side cracked rib Time Seen by Provider: 02/08/22 23:54 Source: patient Mode of arrival: ambulatory Limitations: no limitations History of Present Illness HPI Narrative: Patient apparently slipped on the wet steps landed on his left side been left lower ribs happened yesterday no shortness of breath no loss of consciousness no abdominal pain no cough no head injury no loss of consciousness Related Data Previous Rx's Medication Instructions Recorded cyclobenzaprine 10 mg tablet 10 mg PO Q8H PRN Muscle spasm #14 09/22/21 tabs lidocaine 5 % topical patch 1 patch topical DAILY pain #15 ea 09/22/21 (Lidoderm) naproxen 500 mg tablet 500 mg PO BID PRN pain #14 tabs 09/22/21 amoxicillin 500 mg-potassium 1 tab PO BID #14 tabs 11/26/21 clavulanate 125 mg tablet (Augmentin) ibuprofen 600 mg tablet 600 mg PO TID PRN fever or pain 11/26/21 #14 tabs tramadol 50 mg tablet 50 mg PO Q6H PRN pain #20 tabs 02/09/22 Allergies Allergy/AdvReac Type Severity Reaction Status Date / Time No Known Allergies Allergy Verified 11/29/21 04:24 Review of Systems Review of Systems: Yes all other systems are reviewed and are negative PMFSH Past Medical History Medical History No known health problems Social History Social History Alcohol intake: never Patient Tobacco Use Status: Never used Tobacco Use of substances other than those prescribed or required for medical reasons: No Advance Directives: No Advance Directives Information Provided: No Physical Exam Vital Signs: Vital Signs: Last Vital Signs Temp 98.1 F 02/09/22 05:25 Pulse 75 02/09/22 05:25 Resp 14 02/09/22 05:25 BP 146/101 H 02/09/22 05:25 Pulse Ox 97 02/09/22 05:25 O2 Del Method 02/09/22 05:25 BMI result Body Mass Index 38.7 Appearance: Alert. Oriented X3. No acute distress. Eyes: PERRLA, No Nystagmus HEENT: Pharynx normal. Oral Mucosa moist atraumatic normocephalic Neck: Normal inspection. Neck supple. CVS: Normal heart rate and rhythm. Pulses normal. Respiratory: No respiratory distress. Equal air entry bilateral, no w heezing/rales/rhonchi tender to touch lower ribs left midaxillary area Abdomen: Soft and nontender. Bowel sounds are present, no mass palpable, no CVA tenderness Skin: Skin warm and dry. Normal skin color. Normal skin turgor. Extremities: No lower extremity edema. No calf tenderness Neuro: Oriented X 3. No motor deficit. No sensory deficit.No cerebellar signs , cranial nerves II-XII intact MDM - Fall MDM Narrative Medical decision making narrative: Patient status post fall CT chest negative for any fracture will discharge patient home home on pain medication Discharge Plan Discharge Clinical Impression: Chest wall contusion Patient Disposition: Home, Self-Care Instructions: Rib Contusion (ED) Additional Instructions: Apply ice Tramadol for pain Prescriptions: New tramadol 50 mg tablet 50 mg PO Q6H PRN (Reason: pain) Qty: 20 0RF No Action naproxen 500 mg tablet 500 mg PO BID PRN (Reason: pain) Qty: 14 0RF cyclobenzaprine 10 mg tablet 10 mg PO Q8H PRN (Reason: Muscle spasm) Qty: 14 0RF lidocaine [Lidoderm] 5 % adhesive patch,medicated 1 patch topical DAILY Qty: 15 0RF Rx Instructions: leave on most painful area for up to 12 hrs. May be substituted ibuprofen 600 mg tablet 600 mg PO TID PRN (Reason: fever or pain) Qty: 14 0RF amoxicillin-pot clavulanate [Augmentin] 500-125 mg tablet 1 tab PO BID Qty: 14 0RF Stand Alone Forms: Work/School Release
--- NOTE | 2022-02-09 05:01 | PC.NURSE ---
Pt medicated per AUG, A&O, pt resting quietly while on his cellphone.
--- NOTE | 2022-02-09 05:10 | PC.NURSE ---
Full edit/undo on 10my Oxycodone. Pt. changed his mind and doesn't want this medication at this time.
--- NOTE | 2022-02-09 05:22 | PC.NURSE ---
PT PRESENTS WITH PAIN TO HIS L SIDE OF RIBS AND L FLANK PAIN DUE TO A SLIP AND FALL YESTERDAY MID MORNING WHILE IT WAS RAINING; pt denies LOC, denies n/v/dizziness
[2022-02-09 05:25] VITALS: BP 146/101; PULSE 75; RESP 14; TEMP 36.7; O2SAT 97
[2022-02-09 06:52] VITALS: BP 154/110; PULSE 76; RESP 15; O2SAT 97
--- NOTE | 2022-02-09 06:55 | PC.NURSE ---
Discharge instructions given and explained to pt, all questions answered, pt ambulates safely and independently
== END 2022-02-09 06:56 | disposition home or self-care (01) ==
PROVIDERS: Emergency Provider Internal Medicine
DX: S20.212A Contusion of left front wall of thorax, initial encounter (principal); W17.89XA Other fall from one level to another, initial encounter; Y93.89 Activity, other specified; Y92.9 Unspecified place or not applicable; Y99.9 Unspecified external cause status
CPT/HCPCS: 71101; 71250; 99284

== ENCOUNTER 2022-11-25 03:57 | Emergency (ER) | payer OTHER, SELFPAY ==
[2022-11-25 03:59] VITALS: BP 151/104; PULSE 77; RESP 18; TEMP 36.9; O2SAT 99; BMI 37.0
[2022-11-25 04:15] VITALS: BP 142/95; PULSE 79; RESP 18; TEMP 37.1; O2SAT 97
--- NOTE | 2022-11-25 04:46 | ED.GENADULT ---
HPI - General Adult General Chief complaint: General Medical Stated complaint: Congested/Bodyaches Time Seen by Provider: 11/25/22 04:45 Source: patient Mode of arrival: ambulatory Limitations: no limitations History of Present Illness HPI narrative: 32-year-old male who presents emergency department for evaluation of sinus pressure, rhinorrhea, body aches, sore throat and fatigue. Patient states he has been feeling ill for 2 days. He states that he gets frequent sinus infections and he believes that he has a sinus infection at this time. He states that he has pressure behind his eyes and his lower face. He denied fever but did have chills. He has had rhinorrhea. He complained of a sore throat and a nonproductive cough. He complains of chest pain with coughing and shortness of breath. Denied nausea, vomiting or diarrhea. He complains of diffuse myalgias. Patient has been taking Sudafed and Mucinex without any relief his symptoms. Related Data Previous Rx's Medication Instructions Recorded cyclobenzaprine 10 mg tablet 10 mg PO Q8H PRN Muscle spasm #14 09/22/21 tabs lidocaine 5 % topical patch 1 patch topical DAILY pain #15 ea 09/22/21 (Lidoderm) naproxen 500 mg tablet 500 mg PO BID PRN pain #14 tabs 09/22/21 amoxicillin 500 mg-potassium 1 tab PO BID #14 tabs 11/26/21 clavulanate 125 mg tablet (Augmentin) ibuprofen 600 mg tablet 600 mg PO TID PRN fever or pain 11/26/21 #14 tabs tramadol 50 mg tablet 50 mg PO Q6H PRN pain #20 tabs 02/09/22 amoxicillin 500 mg capsule 1,000 mg PO BID 10 days #40 caps 11/25/22 Allergies Allergy/AdvReac Type Severity Reaction Status Date / Time No Known Allergies Allergy Verified 11/29/21 04:24 Review of Systems Review of Systems: Yes all other systems are reviewed and are negative [facility] Past Medical History [facility] Narrative: Past medical history: Hypertension, sinusitis. Social history: He denies tobacco use, he occasionally drinks alcohol, he denies drug use. Medical History No known health problems Social History Social History Alcohol intake: current Alcohol intake frequency: holidays/special occasions only Patient Tobacco Use Status: Never used Tobacco Smoked in Last 30 Days: No Use of substances other than those prescribed or required for medical reasons: No Advance Directives: No Advance Directives Information Provided: Yes Physical Exam ED Vital Signs: Vital Signs - 24 hr 11/25/22 03:59 11/25/22 04:15 Temperature 98.5 F 98.7 F Pulse Rate 77 79 Respiratory Rate 18 18 Blood Pressure 151/104 H 142/95 H Pulse Oximetry 99 97 Oxygen Delivery Method Room Air Room Air BMI result Body Mass Index 37.0 Const Other: Awake, alert, male patient, pleasant, cooperative in no distress HENMT Head: Yes normal to inspection, Yes normocephalic and Yes atraumatic Ears: external ears normal General nose exam: Normal external nose present Face and sinus: Yes sinuses nontender (Bilateral frontal and maxillary sinus tenderness) Mouth: Normal oral and palatal mucosa present Throat: Yes posterior oropharynx normal Eyes General: appearance normal, both eyes and all related structures Pupils: Equal, round and reactive pupils present Neck Neck: Yes normal visual inspection, Yes no lymphadenopathy, Yes trachea midline and Yes supple Chest Chest palpation & inspection: normal inspection of the chest and normal palpation of entire chest wall Resp Effort & Inspection: normal respiratory effort and able to speak in complete sentences Auscultation: clear to auscultation bilaterally Cardio Rate: regular rate Rhythm: regular rhythm Heart sounds: S1 normal heart sound present, S2 normal heart sound present and no murmurs GI Inspection: Yes normal to inspection Palpation (GI): Soft to palpation, nontender and no guarding Auscultation: normal bowel sounds General: Yes no CVA tenderness Back/Spine/Pelvis Back: no CVA tenderness Skin General skin exam: no rashes or lesions noted Neuro Cranial nerves: Yes CN's II-XII intact bilaterally and Yes Equal, round and reactive pupils present Cognition (Neuro): normal cognition Motor exam (neuro): 5/5 motor strength present throughout Extrem General: Yes normal to inspection Psych Appearance: grossly normal Speech and movement: Normal speech and movement present Affect: normal affect Attitude: cooperative Thought process: Normal thought process present Thought content: Normal thought content present Medical Decision Making Medical Decision Making MDM Narrative: 32-year-old male who presents emergency department for evaluation of sinus pain, sore throat, rhinorrhea, a myalgias, cough, chest pain and shortness of breath. Vital signs revealed an elevated blood pressure of 151/104. Patient's exam did reveal tenderness palpation of his maxillary and frontal sinuses. Patient's COVID-19, influenza and RSV tests were negative. Patient its presentation is consistent with viral syndrome and sinusitis. Patient was started on amoxicillin 1000 mg every 12 hours times 10 days. He was also advised to take Tylenol and ibuprofen. He was given printed and verbal instructions and discharged home Differential Diagnosis Differential diagnosis includes but is not limited to sinusitis, viral syndrome, pneumonia, bronchitis Lab Data MDM Lab Attestation statement: I reviewed the patient's lab results. My interpretation patient's laboratory evaluation is as follows: Influenza, RSV and COVID were negative Labs: Lab Results 11/25/22 Range/Units 04:21 Influenza Type A (PCR) NEGATIVE (Negative) Influenza Type B (PCR) NEGATIVE (Negative) RSV RNA Qual (PCR) NEGATIVE (Negative) SARS-CoV-2 RNA (RT-PCR) NEGATIVE (Negative) Discharge Plan Discharge Clinical Impression: Acute bacterial sinusitis Patient Disposition: Home, Self-Care Instructions: Rhinosinusitis (ED) Additional Instructions: Your COVID-19, influenza and RSV viral tests were negative Take amoxicillin 500 mg pills, 2 pills every 12 hours for 10 days. This medication would treat sinus infections, bronchitis and pneumonia. Take ibuprofen 200 mg pills, 2 pills every 6 hours as needed for pain. Take Tylenol (acetaminophen) 500 mg pills, 2 pills every 4 to 6 hours as needed for pain. Follow-up with your doctor in 2 days. Please return to the emergency department if your symptoms get worse or if you develop any symptoms that are concerning to you. Prescriptions: New amoxicillin 500 mg capsule 1,000 mg PO BID 10 Days Qty: 40 0RF No Action tramadol 50 mg tablet 50 mg PO Q6H PRN (Reason: pain) Qty: 20 0RF naproxen 500 mg tablet 500 mg PO BID PRN (Reason: pain) Qty: 14 0RF cyclobenzaprine 10 mg tablet 10 mg PO Q8H PRN (Reason: Muscle spasm) Qty: 14 0RF lidocaine [Lidoderm] 5 % adhesive patch,medicated 1 patch topical DAILY Qty: 15 0RF Rx Instructions: leave on most painful area for up to 12 hrs. May be substituted ibuprofen 600 mg tablet 600 mg PO TID PRN (Reason: fever or pain) Qty: 14 0RF amoxicillin-pot clavulanate [Augmentin] 500-125 mg tablet 1 tab PO BID Qty: 14 0RF
[2022-11-25 05:42] LABS: Influenza A PCR NEGATIVE (Negative); Influenza B PCR NEGATIVE (Negative); Resp Syncy Virus RNA Qual PCR NEGATIVE (Negative); SARS COV2 PCR INHOUSE NEGATIVE (Negative)
== END 2022-11-25 06:10 | disposition home or self-care (01) ==
PROVIDERS: Emergency Provider Emergency Medicine Emergency Medical Services
DX: J01.90 Acute sinusitis, unspecified (principal); M79.10 Myalgia, unspecified site; Z20.822 Contact with and (suspected) exposure to COVID-19; Z20.828 Contact with and (suspected) exposure to other viral communicable diseases; Z79.899 Other long term (current) drug therapy
CPT/HCPCS: 0241U; 99283; 99284

== ENCOUNTER 2024-06-01 18:25 | Emergency (ER) | payer OTHER, SELFPAY ==
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
--- NOTE | ~2024-06-01 | XR_ITS ---
CLINICAL HISTORY: right upper anterior rib pain sternum pain 3 view, chest and right ribs Comparison: Chest CT from 02/09/2022 Findings: Borderline low lung volumes. No consolidation, pneumothorax, or pleural effusion. Minimal fragmentation at anterior margin cartilage junction of the right 10th rib. Otherwise, no displaced right rib fracture by radiographs. IMPRESSION: 1. Mild fragmentation at anterior margin cartilage junction including right 10th rib. 2. No consolidation or pneumothorax. This document has been electronically signed by: Cristo Flores MD on 06/01/2024 19:50:20
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
[2024-06-01 18:55] VITALS: BP 127/83; PULSE 83; RESP 18; TEMP 37.1; O2SAT 100; BMI 26.4
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
--- OUTSIDE RECORDS SUMMARY | 2024-06-01 22:36 | XMS_ITS ---
Author Organization [facility] Address [address] [place] [address] Care Team Providers Care Conciliation Court Judge Name Role Phone Deysi Yan Unavailable [phone] ALLERGIES, ADVERSE REACTIONS, ALERTS None MEDICATIONS Medication Code Code System Start Date Stop Date Route Dosage Directions Fill Instructions omeprazole 0 RxNorm oral ibuprofen RxNorm 04/08/2023 oral 1 PROBLEMS Problem Name Code Code System Start Date End Date Stat us Gastro-esophageal reflux disease 326485418 [facility] Strain of unspecified muscle, fascia and tendon at wrist and hand level, right hand, initial encounter [id number] [facility] 04/08/2023 Active ENCOUNTERS Encounter Diagnosis Code Code System Date Stat us Strain of unspecified muscle , fascia and tendon at wrist and hand level, right hand, initial encounter [id number] [facility] 04/08/2023 Active IMMUNIZATIONS * None VITAL SIGNS Code Code System Vitals Name Date Value and Un its 8462-4 [facility] Blood Pressure-Diastolic 04/08/2023 81 mmHg 8480-6 [facility] Blood Pressure-Systolic 04/08/2023 1 24 mmHg 8867-4 [facility] Heart Rate 04/08/2023 80 /min 9279-1 [facility] Respiratory Rate 04/08/2023 16 /min 8310-5 [facility] Body Temperature 04/08/2023 98.6 F 05936-8 [facility] Oxygen Saturation 04/08/2023 97 % SOCIAL HISTORY * None PROCEDURES * None MEDICAL EQUIPMENT * Patient has no history of implantable devices ASSESSMENT Assessment You were evaluated for the i njury to the hand.The x-ray does not appear to demonstrate any fracture.As we discussed I suspect the discomfort you have extending towards the wrist/forearm as a result of a strain of the tendon that moves the pinky. You have likely strained the finger as well as the hand.Take the Motrin as prescribed. Take this with food.Apply ice for 20 minutes at a time, 3-4 times daily, for the next few days and then as needed.As we discussed if symptoms do not begin to improve over the next 7 to 10 days please arrange follow-up with an orthopedist. TREATMENT PLAN Type Description Date MEDICATION Take 04/08/2023 APPOINTMENT If not feeling david r in 3 day(s), please see your primary care physician. If you do not have a primary care physician, please return to this clinic. 04/08/2023 Lab Tests None GOALS * None HEALTH CONCERNS * No Health Concerns FUNCTIONAL AND COGNITIVE STATUS * None CONSULTATION NOTES * None DISCHARGE SUMMARY NOTES * None HISTORY AND PHYSICAL NOTES * None IMAGING NOTES * /[place] History: Pain-Right Hand: The patient presents with a chief complaint of pain of the right hand since Sat, Apr 08, 2023.RIGHT LITTLE FINGERFindings:Alignment is normal. On a single lateral view 2 mm minimally displaced avulsion fracture volar corner base of the middle phalanx or more likely artifact related to overlying soft tissue. No significant soft tissue swelling.Impression:Small avulsion fracture volar corner base of the middle phalanx versus artifact, correlate clinically LABORATORY REPORT NARRATIVE NOTES * None PATHOLOGY REPORT NARRATIVE NOTES * None PROGRESS NOTES * None
[2024-06-01 22:53] VITALS: BP 138/83; PULSE 61; RESP 17; TEMP 36.6; O2SAT 99
--- NOTE | 2024-06-01 23:41 | PC.NURSE ---
RN to bedside to medicate pt per MAR with IM toradol. upon arrival to bedside with medication, pt inquired about medication and expressed his desire to not have anything intramuscular and asked if he could refuse adding that he was under the impression that he would be getting a pill form medication. RN educated the patient on IM vs PO route and agreed to place PO order for discomfort. pt to be educated on use and importance of incentive spirometry use
[2024-06-02 00:17] VITALS: BP 128/89; PULSE 62; RESP 16; TEMP 36.7; O2SAT 98
[2024-06-02] MEDS: Ibuprofen 600 MG TABLET PO (00:20)
[2024-06-02 00:21] VITALS: BP 128/89; PULSE 62; RESP 16; TEMP 36.7; O2SAT 98
== END 2024-06-02 00:30 | disposition home or self-care (01) ==
PROVIDERS: Emergency Provider Internal Medicine; PCP Internal Medicine
DX: R07.81 Pleurodynia (principal); S13.4XXA Sprain of ligaments of cervical spine, initial encounter; V43.52XA Car driver injured in collision with other type car in traffic accident, initial encounter; Y93.89 Activity, other specified; Y92.481 Parking lot as the place of occurrence of the external cause; Y99.9 Unspecified external cause status
CPT/HCPCS: 71101; 72040; 72100; 94010; 99284

== ENCOUNTER → 2024-06-01 18:53 | Outpatient (BNV) | payer OTHER, SELFPAY | PROVIDERS: PCP Internal Medicine; Visit Provider Radiology Neuroradiology | DX: M54.2 Cervicalgia (principal); S22.41XA Multiple fractures of ribs, right side, initial encounter for closed fracture; M54.50 Low back pain, unspecified; V49.40XA Driver injured in collision with unspecified motor vehicles in traffic accident, initial encounter | CPT/HCPCS: 71101; 72040; 72100 ==